=== PATIENT | female | born 1970 | race Caucasian/White ===

== ENCOUNTER → 2017-05-21 | Outpatient (CLI) | payer OTHER ==
[~2017-05-21] MED LIST: ECHI80CA PO; NORG0.25 PO; ZINC220T PO
[2017-05-21 10:55] LABS: AUTOMATED NEUTROPHIL # 3.8 TH/MM3 (1.8-7.7); BASOPHIL # 0.1 TH/MM3 (0-0.2); BASOPHIL % 1.3 % (0.0-2.0); EOSINOPHIL # 0.2 TH/MM3 (0-0.4); EOSINOPHIL % 2.3 % (0.0-4.0); HEMATOCRIT 37.1 % (35.0-46.0); HEMO FLAGS DIFF FINAL; LYMPHOCYTE # 2.9 TH/MM3 (1.0-4.8); MEAN CELL VOLUME 87.4 FL (80.0-100.0); MEAN CORPUSCULAR HEMOGLOBIN 29.4 PG (27.0-34.0); MEAN CORPUSCULAR HGB CONC 33.7 % (32.0-36.0); MONO % 7.7 % (0.0-8.0); NEUT % 49.7 % (16.0-70.0); PLATELET COUNT 243 TH/MM3 (150-450); RED BLOOD COUNT 4.25 MIL/MM3 (4.00-5.30); RED CELL DISTRIBUTION WIDTH 13.4 % (11.6-17.2); WHITE BLOOD COUNT 7.5 TH/MM3 (4.0-11.0)
[2017-05-21 11:01] LABS: PROTHROMBIN TIME - PATIENT 9.9 SEC (9.8-11.6)
[2017-05-21 11:13] LABS: BACTERIA, URINE OCC /hpf; BLOOD, URINE NEG (NEG); COMMENT (UR) CULT NOT INDICATED; CULTURE IF INDICATED CULT NOT INDICATED; GLUCOSE,URINE NEG (NEG); KETONE, URINE NEG (NEG); MUCUS URINE FEW /lpf (OCC); NITRITE,URINE NEG (NEG); PH, URINE 6.5 (5.0-8.5); SQUAMOUS EPITHELIAL CELL URINE 2 /hpf (0-5); URINE COLOR LIGHT-YELLOW (YELLW/STRAW)
[2017-05-21 11:27] LABS: BICARBONATE 27.2 MEQ/L (21.0-32.0); POTASSIUM 4.5 MEQ/L (3.5-5.1)
== END ==
LOC: CPRE 10:09
PROVIDERS: ATTEND Orthopaedic Surgery
DX: Z01.812 Encounter for preprocedural laboratory examination (principal); S82.252A Displaced comminuted fracture of shaft of left tibia, initial encounter for closed fracture
CPT/HCPCS: 36415; 80048; 81001; 85025; 85610

== ENCOUNTER → 2017-05-31 | Day surgery (SDC) | payer OTHER ==
--- NOTE | 2017-05-21 09:37 | MH ---
cc: JAMARI KRAMER DATE OF ADMISSION: 05/31/2017 ADMITTING DIAGNOSIS Status post closed IM timmy fixation distal-third left tibia fracture. Pain left lower leg history. HISTORY The patient is a 49-year-old white female who sustained an injury of her left lower extremity in October of this year when she tripped and fell in an accidental fashion with a twisting stress to her left lower extremity in the immediate onset of pain being noted. She was evaluated thereafter in the emergency room of [facility] where initial x-ray studies were completed and a fracture identified about the distal-third of the left tibia. The patient was placed into the splint support and transferred to [facility] where she was admitted to the hospital and the following day underwent surgical stabilization of her left tibia fracture with insertion of an IM timmy as completed by Dr. Chet Santacruz. The patient reports an uneventful healing thereafter but subsequently developed discomfort and irritation at the sites of locking screws both proximally and distally for which she did undergo a more recent evaluation with her treating surgeon at which time there was discussion regarding the possibility of removal locking screws. No such treatment was completed thereafter and the patient subsequently presented to the undersigned physician for second opinion evaluation in the early part of May of this year. At that time her x-ray studies revealed a healed fracture involving the distal-third of the tibia with near-anatomic alignment. A tibial nail was in place with two locking screws both proximally and distally. The knee joint appeared intact. Findings and treatment options were reviewed with the patient at that time. She did expressed her interest in having the locking screws removed in the anticipation that she might be able to experience some improvement of her current level of discomfort. Although no guarantee could be made in this regard, it was felt to be a reasonable request and in compliance with the patient's wishes she has currently been scheduled for admission in order that the locking screws might be removed but the IM timmy be retained at this time. PAST MEDICAL HISTORY, HOSPITALIZATIONS AND SURGERIES 1. section. 2. Right breast lumpectomy with benign findings being noted. 3. Excision of uterine fibroids and endometrial cyst. The patient denies active medical illnesses. CURRENT MEDICATIONS control pills. ALLERGIES She denies any known drug allergies. REVIEW OF SYSTEMS HEENT: She does wear glasses. Denies headache, seizure or syncope. No sinus congestion. There is a history of epistaxis. Auditory acuity intact. No tinnitus. No bleeding gums or dysphagia. RESPIRATORY: Denies cough, shortness of breath, recurrent upper respiratory infection or tuberculosis. There is a positive history of pneumonia. CARDIOVASCULAR: No angina or heart disease. GASTROINTESTINAL: Her appetite is good. Bowel movements are regular. No hepatitis, gallbladder disease, ulcers or hemorrhoids. GENITOURINARY: No urinary tract infection. No kidney stones. MUSCULOSKELETAL: The fracture as described. An additional fracture of the finger of her right hand treated by cast immobilization. PSYCHIATRIC: No psychiatric illness. Her remainder review of systems is unremarkable and noncontributory. FAMILY HISTORY The patient has been for 9 years. She has one son who is described as being in good health. Family history is positive for skin cancer. SOCIAL HISTORY The patient obtained college credits following high school graduation. 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 She admits to a 20 pack-year use of tobacco in the past. Currently smoking only an occasional cigarette. Ethanol consumption socially. PHYSICAL EXAMINATION VITAL SIGNS: Height 5, feet 7 inches, weight 135 pounds. GENERAL: An alert, oriented and responsive 47-year-old white female who sits quietly upon the examination table with no obvious distress. HEAD, EYES, EARS, NOSE, AND THROAT: Pupils are equally round and reactive to light. Extraocular movements full. Sclerae clear. External nares clear. External auditory canals clear. Dental intact. Mucous membranes pink and moist. Pharynx clear. NECK: Supple. Active range of motion with no appreciable pain. Carotid pulse bilaterally. Trachea midline. Thyroid without enlargement. LUNGS: Clear to hospitalization and percussion. No CVA tenderness. No discomfort throughout the dorsolumbar spine. HEART: Regular rhythm. No murmur or gallop. ABDOMEN: Soft, nontender. Bowel sounds present. PELVIC: Deferred. EXTREMITIES: Left lower leg with a well-healed surgical wound about the superior aspect of the left patella with additional punctate wounds along the medial aspect of the proximal and distal tibia. No appreciable knee effusion. Full range of motion about the knee and ankle joint without instability. Tenderness is elicited medially about both proximal and distal tibial areas consistent with underlying fixation screws. Active toe motion. Sensory grossly intact. Independent gait. NEUROLOGIC: Cranial nerves II-XII grossly intact. IMPRESSION Status post closed IM timmy fixation of distal-third left tibia fracture. Pain left leg. PLAN Removal of locking screws left tibial nail with retained IM timmy. The nature of the planned surgical procedure, the potential complications and risks associated, the expectations of surgery and the consent form were thoroughly reviewed with the patient prior to her admission to the hospital. Patricia has indicated her full understanding regarding all of the above and given consent to proceed with treatment as outlined. MD SHAY Mae/KEI /7:53 AM /9:15 AM
[~2017-05-31] VITALS: Ht 167.6 cm; Wt 63.4 kg
[~2017-05-31] MED LIST changes: +*ONDANSETRON 4 MG VIAL PERIprocedural Use ONLY ONE; +*morphine SULFATE 10 MG/ML PERIprocedure ONLY ONE; +ACETAMINOPHEN 1000 MG/100 ML 100 ML IV ONE; +ACETAMINOPHEN/HYDROcodone 325 MG/5 MG TAB PO PRN; +CHLORHEXIDINE GLUCONATE 2 % 1 PACK (2 CLOTHS) TOPICAL PRN; +DEXAMETHASONE SOD PHOS 4 MG/ML VIAL IV ONE; +DO NOT ADM ANY ANTICOAGULANT DRUGS PRN; +FAMOTIDINE 20 MG/2 ML VIAL ONE; +KETOROLAC TROMETHAMINE 30 MG/ML (IVP) VIAL IV PUSH ONE; +LACTATED RINGER'S 1000 ML INJ 1,000 ML IV ONE; +LACTATED RINGER'S 1000 ML IV PRN; +LIDOCAINE HCL 1% PF 5 ML SYRINGE OTHER ONE; +METOPROLOL TARTRATE 25 MG TAB PO PRN; +MIDAZOLAM HCL 2 MG/2 ML VIAL ONE; +MORPHINE SULFATE 2 MG/ML INJ IM PRN; +NEOMYCIN/POLYMYXIN/BACITRACIN OINT 15 GM TUBE ONE; +ONDANSETRON HCL 4 MG/2 ML VIAL IV ONE; +PHENYLEPH/NS 1000 MCG/10 ML SYR IV ONE; +POVIDONE IODINE 5% (ANTISEPSIS KIT) 4 APPLICATIONS EACH NARE PRN; +POVIDONE IODINE 7.5% SCRUB 118 ML BOTTLE TOPICAL SCH; +PROMETHAZINE INJ 25 MG/ML VIAL IM PRN; +PROPOFOL 200 MG/20 ML AMP IV ONE; +SODIUM CHLORID 0.9% 500 ML IV PRN; +ceFAZolin 2 GM PREMIX 50 ML IV SCH; +ePHEDrine/NS 25 MG/5 ML SYRINGE IV ONE
--- NOTE | 2017-05-31 08:30 | MP ---
cc: JAMARI COKER DATE OF SURGERY 31 May 2017 PREOPERATIVE DIAGNOSIS Status post IM timmy fixation, distal third left tibia fracture. POSTOPERATIVE DIAGNOSIS Status post IM timmy fixation, distal third left tibia fracture. PROCEDURE Removal of proximal and distal interlocking screws, left tibia. SURGEON John Paul. ANESTHESIA General by LMA. FORMAT Following induction of satisfactory general anesthesia by LMA insertion as completed per the Department of Anesthesia a tourniquet was established around the proximal portion of the left lower extremity. The extremity proper was isolated with a U-drape thereafter being prepped with Betadine solution and draped into a sterile field in the routine manner. Prior to initiation of the actual procedure the standard timeout protocol was completed. All parameters were appropriately addressed and confirmed by operating room personnel. The extremity was elevated for approximately one minute and the tourniquet thus inflated to 250 mmHg pressure. Localization of screws was facilitated by the use of image intensifying review. Stab wounds were placed both proximally and distally overlying the heads of the screws and by blunt dissection the screw heads were identified and removed manually with a screwdriver without difficulty. Upon completion of same wound sites were irrigated and closed with single interrupted 3-0 Vicryl suture over which Steri-Strips were applied. Xeroform gauze and a bulky dry sterile dressing was placed. The tourniquet was deflated after 26 minutes of tourniquet time. The patient was thereafter transferred to the recovery room in satisfactory condition having tolerated her operative procedure well. Estimated blood loss was negligible. Jamari Coker MD NBS/BT /7:46 AM /8:00 AM
[2017-05-31 09:13] VITALS: BP 97/52; PULSE 74; RESP 16; TEMP 98.4; O2SAT 100
== END | disposition home or self-care (01) ==
LOC: HSDC 05:27 → EDUNIT# 07:00
PROVIDERS: ATTEND Orthopaedic Surgery
DX: T84.84XA Pain due to internal orthopedic prosthetic devices, implants and grafts, initial encounter (principal)
CPT/HCPCS: 01392; 20680; 76000; J0131; J0690; J1100; J1885; J2250; J2270; J2370; J2405; J3010; J7120

== ENCOUNTER → 2017-10-23 | Outpatient (CLI) | payer OTHER ==
[~2017-10-23] MED LIST changes: -*ONDANSETRON 4 MG VIAL PERIprocedural Use ONLY ONE; -*morphine SULFATE 10 MG/ML PERIprocedure ONLY ONE; -ACETAMINOPHEN 1000 MG/100 ML 100 ML IV ONE; -ACETAMINOPHEN/HYDROcodone 325 MG/5 MG TAB PO PRN; -CHLORHEXIDINE GLUCONATE 2 % 1 PACK (2 CLOTHS) TOPICAL PRN; -DEXAMETHASONE SOD PHOS 4 MG/ML VIAL IV ONE; -DO NOT ADM ANY ANTICOAGULANT DRUGS PRN; -FAMOTIDINE 20 MG/2 ML VIAL ONE; -KETOROLAC TROMETHAMINE 30 MG/ML (IVP) VIAL IV PUSH ONE; -LACTATED RINGER'S 1000 ML INJ 1,000 ML IV ONE; -LACTATED RINGER'S 1000 ML IV PRN; -LIDOCAINE HCL 1% PF 5 ML SYRINGE OTHER ONE; -METOPROLOL TARTRATE 25 MG TAB PO PRN; -MIDAZOLAM HCL 2 MG/2 ML VIAL ONE; -MORPHINE SULFATE 2 MG/ML INJ IM PRN; -NEOMYCIN/POLYMYXIN/BACITRACIN OINT 15 GM TUBE ONE; -ONDANSETRON HCL 4 MG/2 ML VIAL IV ONE; -PHENYLEPH/NS 1000 MCG/10 ML SYR IV ONE; -POVIDONE IODINE 5% (ANTISEPSIS KIT) 4 APPLICATIONS EACH NARE PRN; -POVIDONE IODINE 7.5% SCRUB 118 ML BOTTLE TOPICAL SCH; -PROMETHAZINE INJ 25 MG/ML VIAL IM PRN; -PROPOFOL 200 MG/20 ML AMP IV ONE; -SODIUM CHLORID 0.9% 500 ML IV PRN; -ceFAZolin 2 GM PREMIX 50 ML IV SCH; -ePHEDrine/NS 25 MG/5 ML SYRINGE IV ONE
--- NOTE | 2017-10-23 10:27 | RADRPT ---
EXAM DATE: 10/23/2017 10:15 AM EDT AGE/SEX: 47 years / Female INDICATIONS: Evaluate for pneumonia, pneumothorax, or communicable disease. Pre op for right tibia hardware removal. CLINICAL DATA: This is the patient's initial encounter. Patient reports that signs and symptoms have been present for 1 day and indicates a pain score of 0/10. MEDICAL/SURGICAL HISTORY: None. None. COMPARISON: No prior [facility] exams available for comparison. FINDINGS: PA and lateral views of the chest demonstrate the lungs to be symmetrically aerated without evidence of mass, infiltrate or effusion. The cardiomediastinal contours are unremarkable. Osseous structures are intact. CONCLUSION: No evidence of acute cardiopulmonary process. Electronically signed by: Jerad Leger MD 10/23/2017 10:26 AM EDT
[2017-10-23 10:53] LABS: INTERNATIONAL NORMALIZED RATIO 0.9 RATIO; PROTHROMBIN TIME - PATIENT 9.6 SEC (9.8-11.6)
[2017-10-23 11:00] LABS: BACTERIA, URINE RARE /hpf; BILIRUBIN, URINE NEG (NEG); BLOOD, URINE NEG (NEG); GLUCOSE,URINE NEG (NEG); KETONE, URINE 10 mg/dL (NEG); MUCUS URINE FEW /lpf (OCC); NITRITE,URINE NEG (NEG); PH, URINE 5.5 (5.0-8.5); SQUAMOUS EPITHELIAL CELL URINE 1 /hpf (0-5); URINE COLOR YELLOW (YELLW/STRAW); URINE LEUKOCYTE ESTERASE NEG (NEG)
[2017-10-23 11:11] LABS: BICARBONATE 27.1 MEQ/L (21.0-32.0); CALCIUM 8.7 MG/DL (8.5-10.1); CREATININE 0.57 MG/DL (0.50-1.00)
--- NOTE | 2017-10-23 13:54 | EKG ---
Date Performed: 10/23/2017 Time Performed: 09:25:25 PTAGE: 47 years EKG: Sinus rhythm POSSIBLE RIGHT VENTRICULAR CONDUCTION DELAY BORDERLINE ECG NO PREVIOUS TRACING DOCTOR: Willis Mcgovern Interpretating Date/Time 10/23/2017 13:53:12
== END ==
LOC: CPRE 09:02
PROVIDERS: ATTEND Orthopaedic Surgery
DX: Z01.812 Encounter for preprocedural laboratory examination (principal); Z01.810 Encounter for preprocedural cardiovascular examination; S82.302D Unspecified fracture of lower end of left tibia, subsequent encounter for closed fracture with routine healing; R94.31 Abnormal electrocardiogram [ECG] [EKG]; X58.XXXD Exposure to other specified factors, subsequent encounter
CPT/HCPCS: 36415; 71046; 80048; 81001; 85610; 93005

== ENCOUNTER → 2017-11-05 | Day surgery (SDC) | payer OTHER ==
--- NOTE | 2017-10-31 16:57 | MH ---
cc: Juancarlos Coker MD DATE OF ADMISSION: 11/05/2017 ADMITTING DIAGNOSIS: Status post closed intramedullary timmy fixation of a distal third left tibia fracture and pain, left leg. HISTORY OF PRESENT ILLNESS: The patient is a 47-year-old white female who had sustained an injury of her left lower extremity in October of this past year, when she tripped and fell, sustaining a closed fracture of the distal third of her left tibia. She subsequently underwent operative intervention that involved a closed reduction with intramedullary timmy fixation. She experienced uneventful healing thereafter, but did note some lingering soreness about the left lower extremity for which she was readmitted to the hospital in May of this past year and at that time, underwent removal of the locking screws of her left tibia. She did experience an uneventful healing thereafter and seemed to be doing reasonably well. She returned to the office more recently, indicating her concerns with regard to leaving the timmy in place for an undefined period of time given her relatively young chronological age. The pluses and minuses of undergoing removal of the timmy were outlined in detail, with emphasis being made that the decision to proceed with such surgery would be left entirely to the patient's discretion. She considered her options in this regard and subsequently expressed her desire to proceed accordingly and in compliance with her wishes, she has been scheduled for admission at this time in order that removal of the tibial nail be completed. PAST MEDICAL HISTORY, HOSPITALIZATIONS AND SURGERIES: In addition to the fixation of her left tibial fracture include section, lumpectomy of the right breast for benign lesion and excision of uterine fibroids and endometrial cyst. The patient denies active medical illnesses. CURRENT MEDICATIONS: Include control pills and Zoloft. ALLERGIES: SHE DENIES ANY KNOWN DRUG ALLERGIES. REVIEW OF SYSTEMS: Wears glasses. No headache, seizure, or syncope. No sinus congestion. She has had epistaxis in the past. Auditory acuity intact. No tinnitus. No bleeding gums or dysphagia. No cough, shortness of breath, upper respiratory infection or tuberculosis. She has a history of pneumonia. No angina or heart disease. Appetite good. Bowel movements regular. No hepatitis, gallbladder disease, ulcers or hemorrhoids. No urinary tract infection. No kidney stones. Tibia fracture of the left lower extremity as described. No psychiatric illness. Her remaining review of systems is unremarkable and noncontributory. FAMILY HISTORY: The patient has been for at least 9 years. She has 1 son indicated to be in good health. Her family history is positive for skin cancer. SOCIAL HISTORY: The patient completed a high school education, with additional college credits. 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 She admits to a [id number] use of tobacco, but has discontinued active smoking within the past year. Ethanol consumption socially. PHYSICAL EXAMINATION: VITAL SIGNS: Height 5 feet 7 inches, weight 137 pounds. GENERAL: An alert, oriented, and responsive 47-year-old white female who sits quietly upon the examination table with no apparent distress. HEAD, EARS, EYES, NOSE, AND THROAT: Pupils are equally round and reactive to light. Extraocular movements full. Sclerae clear. External nares clear. External auditory canals clear. Dental intact. Mucous membranes pink and moist. Pharynx clear. NECK: Supple. Active range of motion with no associated pain. Carotid pulse is palpable bilaterally. Trachea midline. Thyroid without thyroid enlargement. LUNGS: Clear to auscultation and percussion. BACK: No CVA tenderness. No discomfort involving the dorsolumbar spine. HEART: Regular rate and rhythm. No murmur or gallop. ABDOMEN: Soft, nontender, bowel sounds present. PELVIC: Deferred. EXTREMITIES: Left leg: A well-healed surgical incision along the midline about the superior aspect of the left knee. No suggestion for swelling or intraarticular effusion. A full range of motion about the knee joint without crepitation or instability. No collateral ligamentous laxity. Sloane test and drawer sign negative. Pivot shift and Julianna sign negative. Distal sensory grossly intact. Independent gait. NEUROLOGIC: Cranial nerves 2-12 grossly intact. IMPRESSION: Status post intramedullary timmy fixation closed distal third left tibia fracture. PLAN: Removal of fixation timmy, left tibia. The nature of the planned surgical procedure, the potential complications and risks associated, the expectations of surgery and the consent form were thoroughly reviewed with the patient prior to her admission to the hospital. Patricia has indicated her full understanding regarding all of the above and given consent to proceed with treatment as outlined. MD SHAY Mae/KD , 04:32 PM , 04:57 PM
[~2017-11-05] VITALS: Ht 167.6 cm; Wt 62.8 kg
[~2017-11-05] MED LIST changes: +*morphine SULFATE 4 MG/ML PERIprocedure ONLY ONE; +ACETAMINOPHEN 1000 MG/100 ML 100 ML IV ONE; +ACETAMINOPHEN/HYDROcodone 325 MG/5 MG TAB ONE; +ACETAMINOPHEN/HYDROcodone 325 MG/5 MG TAB PO PRN; +BUPIVACAINE/EPINEPHRINE 0.5% PF 10 ML VIAL ONE; +CHLORHEXIDINE GLUCONATE 2 % 1 PACK (2 CLOTHS) TOPICAL PRN; +DO NOT ADM ANY ANTICOAGULANT DRUGS PRN; +KETOROLAC TROMETHAMINE 30 MG/ML (IVP) VIAL IV PUSH ONE; +LACTATED RINGER'S 1000 ML IV PRN; +LIDOCAINE HCL 1% PF 5 ML SYRINGE OTHER ONE; +METOPROLOL TARTRATE 25 MG TAB PO PRN; +MORPHINE SULFATE 10 MG/ML INJ IM PRN; +MORPHINE SULFATE 4 MG/ML INJ ONE; +ONDANSETRON HCL 4 MG/2 ML VIAL IV ONE; +POVIDONE IODINE 5% (ANTISEPSIS KIT) 4 APPLICATIONS EACH NARE PRN; +POVIDONE IODINE 7.5% SCRUB 118 ML BOTTLE TOPICAL SCH; +PROMETHAZINE INJ 25 MG/ML VIAL IM PRN; +PROPOFOL 200 MG/20 ML AMP IV ONE; +SODIUM CHLORID 0.9% 500 ML IV PRN; +ceFAZolin 2 GM PREMIX 50 ML IV SCH; +ePHEDrine/NS 25 MG/5 ML SYRINGE IV ONE
[2017-11-05 06:58] LABS: BASOPHIL # 0.1 TH/MM3 (0-0.2); BASOPHIL % 0.8 % (0.0-2.0); EOSINOPHIL # 0.2 TH/MM3 (0-0.4); EOSINOPHIL % 2.7 % (0.0-4.0); HEMATOCRIT 33.6 % (35.0-46.0); LYMPH % 47.6 % (9.0-44.0); LYMPHOCYTE # 3.5 TH/MM3 (1.0-4.8); MEAN CELL VOLUME 85.9 FL (80.0-100.0); MEAN CORPUSCULAR HEMOGLOBIN 28.2 PG (27.0-34.0); MEAN CORPUSCULAR HGB CONC 32.8 % (32.0-36.0); MONO % 8.1 % (0.0-8.0); MONOCYTE # 0.6 TH/MM3 (0-0.9); NEUT % 40.8 % (16.0-70.0); PLATELET COUNT 289 TH/MM3 (150-450); RED BLOOD COUNT 3.91 MIL/MM3 (4.00-5.30); RED CELL DISTRIBUTION WIDTH 13.1 % (11.6-17.2); WHITE BLOOD COUNT 7.3 TH/MM3 (4.0-11.0)
--- NOTE | 2017-11-05 09:50 | MP ---
cc: Juancarlos Coker MD DATE OF OPERATION: 11/05/2017 PREOPERATIVE DIAGNOSIS: Status post intramedullary timmy fixation, left tibia fracture. POSTOPERATIVE DIAGNOSIS: Status post intramedullary timmy fixation, left tibia fracture. PROCEDURE PERFORMED: Removal fixation timmy, left tibia. SURGEON: Juancarlos Coker MD ANESTHESIA: General by LMA. FORMAT: Following induction of satisfactory general anesthesia by LMA insertion as completed per the Department of Anesthesia, a tourniquet was established around the proximal portion of the left lower extremity. The extremity proper was isolated with a U-drape, thereafter being prepped with Betadine solution and draped into a sterile field in the routine manner. Prior to initiation of the actual procedure, the standard timeout protocol was completed. All parameters were appropriately addressed and confirmed by operating room personnel. The extremity was elevated for approximately 1 minute and the tourniquet thus inflated to 250 mmHg pressure. A sharp skin incision was initiated along the anterior aspect of the knee distal to the patella along the medial margin of the patellar tendon and developed through underlying subcutaneous tissue with hemostasis maintained by electrocautery. By deepening dissection, the proximal aspect of the tibia was exposed. Utilizing the C-arm for localization purposes, the positioning of the proximal aspect of the IM timmy was identified and thereafter a limited bone resection facilitated with both rongeur and curettes facilitated exposure of the proximal portion of the tibial nail. The extractor apparatus was screwed into the proximal aspect of the timmy and thereafter it was removed by manual extraction without difficulty. The wound was thereafter copiously irrigated with saline solution, hemostasis maintained by electrocautery. The defect in the proximal tibia was filled with bone wax. The wound was thus closed in layers in the routine manner, skin margins being reapproximated with a running subcuticular 3-0 Vicryl suture over which Steri-Strips were applied. Xeroform gauze and a bulky dry sterile dressing were placed. The tourniquet was deflated after 45 minutes of tourniquet time. Anesthesia was discontinued and the patient thus transferred to a hospital stretcher and returned to the recovery room in satisfactory condition, having tolerated her operative procedure well. Estimated blood loss was less than 5 mL. Juancarlos Coker MD NBS/SB , 09:11 AM , 09:49 AM
[2017-11-05 10:21] VITALS: BP 104/44; PULSE 80; RESP 18; TEMP 98.5; O2SAT 100
== END | disposition home or self-care (01) ==
LOC: HSDC 05:39
PROVIDERS: ATTEND Orthopaedic Surgery
DX: S82.392D Other fracture of lower end of left tibia, subsequent encounter for closed fracture with routine healing (principal); M79.605 Pain in left leg; W01.0XXD Fall on same level from slipping, tripping and stumbling without subsequent striking against object, subsequent encounter; Z01.818 Encounter for other preprocedural examination; F17.200 Nicotine dependence, unspecified, uncomplicated
CPT/HCPCS: 01392; 20680; 76000; 85025; J0131; J0690; J1885; J2270; J2405; J3010; J7120